=== PATIENT | female | born 1935 | race Caucasian/White ===

== ENCOUNTER → 2017-07-25 | Day surgery (SDC) | payer MEDICARE, OTHER ==
[~2017-07-25] VITALS: Ht 167.6 cm; Wt 63.5 kg
[~2017-07-25] MED LIST: ACETAMINOPHEN 1000 MG/100 ML 100 ML IV ONE; ACETAMINOPHEN/HYDROcodone 325 MG/5 MG TAB ONE; AMPICILLIN/SULBAC 3 GM/NS 100 ML IV PRN; AMPICILLIN/SULBAC 3 GM/NS 100 ML IV SCH; ASPI81TA23 PO; CHLORHEXIDINE GLUCONATE 2 % 1 PACK (2 CLOTHS) TOPICAL PRN; HYDR-3516 PO; LACTATED RINGER'S 1000 ML IV PRN; LEVO50TA4 PO; LIDOCAINE 0.5%/EPINEPHrine 1:200,000 SOLN 50 ML VIAL ONE; METOPROLOL TARTRATE 25 MG TAB PO PRN; OXYB5TAB8 PO; OXYMETAZOLINE HCL 0.05% 15 ML NASAL SPRAY ONE; POVIDONE IODINE 5% (ANTISEPSIS KIT) 4 APPLICATIONS EACH NARE PRN; SERT25TA83 PO; SODIUM CHLORID 0.9% 500 ML IV PRN
[2017-07-25 10:55] VITALS: PULSE 82
[2017-07-25 11:30] VITALS: PULSE 70; TEMP 98.2
[2017-07-25 12:25] VITALS: BP 129/74; PULSE 73; RESP 14; O2SAT 97
--- NOTE | 2017-07-26 00:20 | EKG ---
Date Performed: 07/25/2017 Time Performed: 08:47:51 PTAGE: 82 years EKG: Sinus rhythm WITH SINUS ARRHYTHMIA NORMAL ECG NO PREVIOUS TRACING DOCTOR: Jhonathan Hewitt Interpretating Date/Time 07/26/2017 00:19:47
--- NOTE | 2017-07-26 10:10 | MP ---
cc: ЮЛИЯ RENEE M.D. DATE OF SURGERY 07/25/[address] Юлия renee PREOPERATIVE DIAGNOSIS Tumor left submandibular salivary gland. POSTOPERATIVE DIAGNOSIS Tumor left submandibular salivary gland. OPERATION PERFORMED Excision of left submandibular salivary gland with tumor. INDICATIONS Documented in the history and physical. DESCRIPTION OF OPERATION The patient was taken to OR #2 and placed in the supine position. Following induction of general anesthesia and intubation using a laryngeal mask apparatus, a shoulder roll was placed and the patient was positioned for surgery of the left lateral neck. The neck was marked with a 6-cm horizontal line two fingerbreadths below the inferior border of the mandible. This was below the inferior margin of the submandibular salivary gland. The cindy was injected with 2-1/2 mL of 0.5% Lidocaine with epinephrine 1:100,000. She was then prepped and draped for surgery. The line was incised down to a subplatysmal plane exposing the superficial layer of deep cervical fascia. This fascia layer was elevated and bluntly penetrated and the tumor extending from the inferior and anterior margins of the salivary gland was immediately identified. The tumor was released from its surrounding fascial attachments using blunt and bipolar cautery dissection. There was normal-appearing gland more posteriorly and superiorly. This was also released from the surrounding fascial attachments. During this process, the facial artery and vein were doubly clamped and ligated and the mylohyoid muscle was then retracted anteriorly exposing the duct. The duct was released from the surrounding attachments as well as from the submandibular ganglia. When the lesion was fully mobilized, it was passed off the field as specimen. The wound was irrigated and suctioned. A few small sites of bleeding were cauterized with the bipolar cautery. A quarter inch Radnor drain was placed into the depths of the wound and the closure was begun in layers beginning with the platysma layer closed with 3-0 Vicryl interrupted, subcutaneous layer closed with a 4-0 Vicryl interrupted and the skin itself closed with a running suture of 5-0 fast-absorbing plain gut. The drain was held in place with a 3-0 Vicryl. A [place] dressing was applied and the procedure was terminated. The patient was reversed from anesthesia and taken to recovery in good condition. There were no complications. Blood loss was 40 mL. MD AMMY Powell/SUSAN /11:05 AM /10:03 AM
== END | disposition home or self-care (01) ==
LOC: PHSDC 06:50
PROVIDERS: ATTEND Otolaryngology
DX: K11.23 Chronic sialoadenitis (principal); E03.9 Hypothyroidism, unspecified; Z01.810 Encounter for preprocedural cardiovascular examination
CPT/HCPCS: 00100; 42440; 88307; 93005; J0131; J0295; J3010; J7120; 88305